=== PATIENT | male | born 2000 | race Caucasian/White ===

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

== ENCOUNTER 2022-04-02 16:13 | Emergency (ER) | payer BC, OTHER ==
[~2022-04-02] VITALS: Ht 175.3 cm; Wt 65.8 kg
--- NOTE | 2022-04-02 17:17 | NUR ---
TO ER 7,NO APPARENT CHANGE IN CONDITION
[2022-04-02] MEDS ORDERED: ALBU18HF2 INH (18:29)
[2022-04-02] MEDS ORDERED: METH4TAB17 PO (18:29)
[2022-04-02] MEDS ORDERED: BENZ-13 PO (18:29)
[2022-04-02] MEDS ORDERED: NAPR-1009 PO (18:29)
[2022-04-02 18:45] VITALS: BP 133/79
--- NOTE | 2022-04-02 18:45 | NUR ---
Patient discharged to home in stable condition. Written and verbal after care instructions given. Patient verbalizes understanding of instruction.
== END 2022-04-02 18:45 | disposition home or self-care (01) ==
LOC: ER 16:18
DX: J45.909 Unspecified asthma, uncomplicated (principal); R05.9 Cough, unspecified; M94.0 Chondrocostal junction syndrome [Tietze]
CPT/HCPCS: 71045-TC